=== PATIENT | male | born 1970 | race Caucasian/White ===

== ENCOUNTER 2017-10-15 12:22 | Emergency (ER) | payer OTHER ==
[2017-10-15 12:37] VITALS: BP 139/92; PULSE 76; TEMP 98.6; BMI 35.4
--- NOTE | 2017-10-15 13:21 | PDOC ---
History of Present Illness - General Chief Complaint: Back Pain Stated Complaint: BACK PAIN - History of Present Illness Initial Comments: 47-year-old male presents for evaluation of lower back pain after picking up a heavy bag of cement at work today. He describes his pain as achy exacerbated with motion relieved with rest and without radiation. He denies loss of bowel or bladder function or saddle paresthesias. 10/15/17 13:18 Past History - Past Medical History Allergies/Adverse Reactions: Allergies Allergy/AdvReac Type Severity Reaction Status Date / Time No Known Allergies Allergy Verified 10/15/17 12:34 Home Medications: Ambulatory Orders Cyclobenzaprine HCl [Flexeril 10 mg] 10 mg PO HS PRN #10 tablet 10/15/17 CVA: No COPD: No DVT: No Dementia: No - Suicide/Smoking/Psychosocial Hx Smoking History: Never smoked Information on smoking cessation initiated: No Hx Alcohol Use: No Drug/Substance Use Hx: No Substance Use Type: None Review of Systems - Review of Systems Musculoskeletal: Yes: See HPI, Back Pain All Other Systems: Reviewed and Negative *Physical Exam - Vital Signs Last Vital Signs Temp Pulse Resp BP Pulse Ox 98.6 F 76 16 139/92 99 10/15/17 12:34 10/15/17 12:34 10/15/17 12:34 10/15/17 12:34 10/15/17 12:34 - Physical Exam Comments: Lumbar spine skin color and temperature within normal limits she has minimally decreased lumbar spine range of motion. He has 5 out of 5 strength in bilateral lower extremities including EHL, plantar flexion, dorsiflexion, quadriceps, hamstrings and hip flexion. He has a negative straight leg raise test bilaterally. Minimal paralumbar musculature spasm. Minimal tenderness. No midline tenderness. He has no gross sensorimotor deficits she's neurovascularly intact. Thighs and calves are soft and nontender. 10/15/17 13:18 Medical Decision Making - Medical Decision Making 47-year-old male with lumbar spine strain on an WEI inhibitor at home I will treat him with Flexeril advised him to stay away from anti-inflammatories for renal side effects. 10/15/17 13:19 *DC/Admit/Observation/Transfer Diagnosis at time of Disposition: Lumbar strain - Referrals Referrals: Dontae Loyola [Primary Care Provider] - Jerome Sharp MD [Staff Physician] - - Patient Instructions Printed Discharge Instructions: Low Back Pain, DI for Low Back Pain Additional Instructions: Return to the emergency room should her symptoms worsen or go unresolved. I've given you a muscle relaxer which will help your pain. This pill make a tight. He may take one pill before bedtime. He may take Tylenol for pain. Follow-up with spine surgery for further evaluation and treatment options in the next 1-2 days. - Post Discharge Activity
== END 2017-10-15 13:25 | disposition home or self-care (01) ==
LOC: JERFT 12:22
DX: S39.012A Strain of muscle, fascia and tendon of lower back, initial encounter (principal); X50.0XXA Overexertion from strenuous movement or load, initial encounter; X50.9XXA Other and unspecified overexertion or strenuous movements or postures, initial encounter; Y93.89 Activity, other specified; Y92.69 Other specified industrial and construction area as the place of occurrence of the external cause; Y99.0 Civilian activity done for income or pay
CPT/HCPCS: 99281-25